=== PATIENT | female | born 1945 | race Hispanic/Latino ===

== ENCOUNTER 2021-12-01 12:07 | Day surgery (SDC) | payer MEDICARE ==
[2021-11-30 14:17] VITALS: BMI 37.3
[2021-12-01 15:20] VITALS: BP 203/69; TEMP 98.4
== END 2021-12-01 13:15 | disposition home or self-care (01) ==
LOC: ULT 12:07 → EDSTATUS 13:00 → ULT 13:15
PROVIDERS: ATTEND Otolaryngology Plastic Surgery within the Head & Neck
DX: E04.1 Nontoxic single thyroid nodule (principal); Z53.9 Procedure and treatment not carried out, unspecified reason; Z79.84 Long term (current) use of oral hypoglycemic drugs; Z79.899 Other long term (current) drug therapy; Z91.040 Latex allergy status

== ENCOUNTER 2022-01-04 11:53 | Day surgery (SDC) | payer MEDICARE ==
[2021-12-31 11:25] VITALS: BMI 37.0
[2022-01-04] MEDS ORDERED: Lidocaine 1% PF 5 ML VIAL ONE (12:49)
[2022-01-04] MEDS ORDERED: Sodium Bicarbonate 2.5 MEQ/5 ML VIAL ONE (12:49)
[2022-01-04 14:08] VITALS: BP 179/63; TEMP 97.7
== END 2022-01-04 14:55 | disposition home or self-care (01) ==
LOC: ULT 11:53
PROVIDERS: ATTEND Otolaryngology Plastic Surgery within the Head & Neck
PROC: 0G9G3ZX Drainage of Left Thyroid Gland Lobe, Percutaneous Approach, Diagnostic (ICD-10-PCS; principal; 2022-01-04)
DX: E04.2 Nontoxic multinodular goiter (principal); Z79.84 Long term (current) use of oral hypoglycemic drugs; Z79.899 Other long term (current) drug therapy; Z91.040 Latex allergy status
CPT/HCPCS: 10005; 10006; 60100; 76942; 88173; 88305